=== PATIENT | male | born 1975 | race Two or more races ===

== ENCOUNTER 2025-01-21 21:37 | Emergency (ER) | payer BC, OTHER ==
[~2025-01-21] VITALS: Ht 172.7 cm; Wt 114.0 kg
[2025-01-21] MEDS: ONDANSETRON ODT 4 MG TAB PO ONE (22:25)
[2025-01-21] MEDS: HYDROmorphone HCL 2 MG/ML VL/or syr IM ONE (22:32)
--- NOTE | 2025-01-21 22:45 | ED.PDOC ---
General HPI Comments 49-year-old, obese male presents with spouse for chief complaint of testicular pain. Patient endorses on sudden, unprovoked, atraumatic onset of 10/10 pain, which started, initially, in his penis before radiating to his testicles and an lower abdomen, while urinating, 2 hours prior to ED arrival. No recent strenuous or sexual activities or further per no events reported. He denies having any burning with urination, hematuria, nausea, vomiting, or further acute symptoms. Chief Complaint: Testicle Pain Time Seen by MD: 22:15 Reviewed notes: Nurses Notes, Medications, Allergies Allergies: Coded Allergies: NO KNOWN ALLERGIES (Unverified , 01/21/25) Information Source: Patient Mode of Arrival: Ambulatory Severity: Moderate Inability to void: None Timing: Hours Duration: Since onset Prehospital treatment: None Onset: Spontaneous Symptoms: Other (See HPI) History of: None Location: Abdomen Location male: R Scrotum, L Scrotum Penile discharge: None Modifying factors: None associated signs and symptoms: Other (See HPI) Past Medical History PAST MEDICAL HISTORY: Denies Surgical History: Denies all surgeries Social History Smoker: Non-Smoker Alcohol: Denies ETOH Use Drugs: Denies Drug Use Lives In: Home All Other Systems: Reviewed and Negative (Comprehensive review of systems are negative unless otherwise stated in HPI) Physical Exam General Appearance: Obese, Severe Distress HEENT: Normal ENT Inspection, Pharynx Normal, TMs Normal Neck: Full Range of Motion, Non-Tender, Normal, Normal Inspection Respiratory: Chest Non-Tender, Lungs Clear, No Accessory Muscle Use, No Respiratory Distress, Normal Breath Sounds Cardiovascular: No Edema, No JVD, No Murmur, No Gallop, Normal Peripheral Pulses, Regular Rate/Rhythm Breast Exam: Deferred Gastrointestinal: Distended (Lower abdomen), No Organomegaly, No Pulsatile Mass, Normal Bowel Sounds, Soft, Tenderness (Lower abdomen) Genitalia: Testicle (Tenderness to palpation without any obvious swelling or hernia) Pelvic: Deferred Rectal: Deferred Extremities: No calf tenderness, Normal capillary refill, Normal inspection, Normal range of motion, Non-tender, No pedal edema Musculoskeletal : Apperance: Normal Neurologic: Alert, fashion illustrator II-XII nml as Tested, No Motor Deficits, Normal Affect, Normal Mood, No Sensory Deficits Cerebellar Function: Normal Reflexes: Normal Skin: Dry, Normal Color, Warm Lymphatic: No Adenopathy Was a procedure done? Was a procedure done?: No Differential Diagnosis Kidney stone (Female): N/A Kidney stone (Male): N/A Penile/Scrotal: Epidiymitis, UTI, Phimosis, Hydrocele, Testicular Torsion, Urolithiasis Urinary Problem (Male): N/A Urinary Problem (Female): N/A X-Ray, Labs, Meds, VS Vital Signs Date Time Temp Pulse Resp B/P (MAP) Pulse Ox O2 Delivery O2 Flow Rate FiO2 01/21/25 23:59 94 18 160/106 01/21/25 23:25 94 18 95 Room Air* 0 21 01/21/25 23:23 98.7 94 18 160/106 (124) 95 98.7 01/21/25 22:32 93 20 152/98 01/21/25 21:53 98.5 111 20 156/84 95 98.5 Lab Test 01/21/25 22:45 Range/Units White Blood Count 10.6 4.4-10.8 10^3/uL Red Blood Count 4.96 4.5-5.90 10^6/uL Hemoglobin 14.8 13.5-17.5 g/dL Hematocrit 42.9 41.0-53.0 % Mean Corpuscular Volume 86.6 80.0-100.0 fL Mean Corpuscular Hemoglobin 29.9 28.0-32.0 pg Mean Corpuscular Hemoglobin Concent 34.5 32.0-36.0 g/dL Red Cell Distribution Width 13.6 11.8-14.3 % Platelet Count 110 L 140-450 10^3/uL Mean Platelet Volume 10.6 6.9-10.8 fL Neutrophils (%) (Auto) 62.8 37.0-80.0 % Lymphocytes (%) (Auto) 30.8 10.0-50.0 % Monocytes (%) (Auto) 4.8 0.0-12.0 % Eosinophils (%) (Auto) 0.4 0.0-7.0 % Basophils (%) (Auto) 1.2 0.0-2.0 % Neutrophils # (Auto) 6.7 1.6-8.6 10 ^3/uL Lymphocytes # (Auto) 3.3 0.4-5.4 10 ^3/uL Monocytes # (Auto) 0.5 0-1.3 10 ^3/uL Eosinophils # (Auto) 0 0-0.8 10 ^3/uL Basophils # (Auto) 0.1 0-0.2 10 ^3/uL Nucleated Red Blood Cells 0.1 % Sodium Level 142 136-145 mmol/L Potassium Level 3.2 L 3.5-5.1 mmol/L Chloride Level 102 98-107 mmol/L Carbon Dioxide Level 25 20-31 mmol/L Anion Gap 15 5-15 Blood Urea Nitrogen 14 9-23 mg/dL Creatinine 1.23 0.700-1.30 mg/dL Glomerular Filtration Rate Calc 72 >90 mL/min BUN/Creatinine Ratio 11.4 10.0-20.0 Serum Glucose 169 H 74-106 mg/dL Calcium Level 9.9 8.7-10.4 mg/dL Lipase 33 12-53 U/L Current Medications Medications (Trade) Dose Ordered Sig/Juan Route Start Time Stop Time Status Last Admin Hydromorphone HCl (Dilaudid Injection) 1 mg ONCE ONCE IM 01/21/25 22:30 01/21/25 22:31 DC 01/21/25 22:32 Ondansetron HCl (Zofran Po) 4 mg ONCE ONCE PO 01/21/25 22:30 01/21/25 22:31 DC 01/21/25 22:25 [place] [id number] Ph: [phone] DIAGNOSTIC IMAGING Diagnostic Imaging Report : [id number] Signed PATIENT: ROSHAN SIMPSON ACCT: [id number] UNIT: [id number] : 1975 LOC: ER ROOM / BED: / AGE / SEX: 49 / M ADM STATUS: REG ER SERVICE 33 ORDERING PHYSICIAN: BREE MORELAND PROCEDURE(s): ABPL - CT AB PEL WO CON-NO ORAL OR IV REASON: abd pain ORDER NUMBER(s): [id number], ACCESSION NUMBER(s): [id number] Exam: CT CT AB PEL WO CON-NO ORAL OR IV History: abd pain Comparison Study: None TECHNIQUE: Multidetector CT of the abdomen and pelvis was performed from lung bases to pubic symphysis. Imaging was performed without IV contrast. Axial, coronal, and sagittal multiplanar reformats were obtained from the axial data set by the technologist. RADIATION DOSE: CTDI vol 18.9 mGy. DLP 1138.2 mGy.cm Findings: Limited evaluation of the solid organs in the absence of IV contrast. Lungs: The lung bases are clear. Liver: Unremarkable. Spleen: Unremarkable. Pancreas: Unremarkable. Gallbladder: Unremarkable. Adrenals: Unremarkable Kidneys: 1 mm calculus situated in the region of the distal left ureter near the ureterovesicular junction with mild upstream hydroureteronephrosis. Pelvic Viscera: Unremarkable. Vasculature: Unremarkable. Retroperitoneum: Unremarkable. Bowel: No bowel obstruction. No CT evidence of appendicitis. Musculoskeletal: Grade 1 anterolisthesis of L4 on L5 on the basis of bilateral pars defects.. Soft tissues: Tiny fat containing umbilical hernia. Impression: 1. 1 mm calculus situated in the region of the distal left ureter near the ureterovesicular junction with mild upstream hydroureteronephrosis. 2. Incidental findings as detailed. ATED BY: KESHA GUERRIER MD DICTATED DATE/TIME: 01/21/252339 SIGNED BY: KESHA GUERRIER MD SIGNED DATE/TIME: 01/21/252339 CC: [place] [id number] Ph: [phone] DIAGNOSTIC IMAGING Diagnostic Imaging Report : [id number] Signed PATIENT: ROSHAN SIMPSON ACCT: [id number] UNIT: [id number] : 1975 LOC: ER ROOM / BED: / AGE / SEX: 49 / M ADM STATUS: REG ER SERVICE 31 ORDERING PHYSICIAN: BREE MORELAND PROCEDURE(s): TESUS - TESTICULAR ULTRASOUND REASON: pain ORDER NUMBER(s): [id number], ACCESSION NUMBER(s): [id number] ULTRASOUND OF SCROTUM AND CONTENTS. INDICATION: pain COMPARISON: None TECHNIQUE: Multiple real-time grayscale sonographic and color and duplex Doppler images of the scrotum and its contents were obtained. FINDINGS: The right testicle measures 4.9 x 3.3 x 2.7 cm. The left testicle measures 4.4 x 3.3 x 2.7 cm. Both testicles demonstrate homogeneous echotexture without evidence of focal lesions. Left varicocele. The right epididymis measures 1.6 cm. The left epididymis measures 1.5 cm. Subsequent color and duplex Doppler interrogation of the testes demonstrated sy mmetric normal vascular flow to both testicles. No focal areas of hyperemia were seen. IMPRESSION: 1. No evidence of torsion, epididymitis, and/or orchitis. 2. Left varicocele. ATED BY: VALDEZ SCHAFER MD DICTATED DATE/TIME: 01/21/252333 SIGNED BY: VALDEZ SCHAFER MD SIGNED DATE/TIME: 01/21/252333 CC: X-Ray, Labs, Meds, VS Comment Imaging was reviewed by this provider, there is no obvious pathological . 1 mm kidney stone noted in the lower ureter Pending radiology review Labs were reviewed by this provider, no abnormalities Vital signs reviewed by this provider, clinically stable Time of 1ST Reevaluation: 22:55 Reevaluation 1ST: Unchanged Patient Education/Counseling: Diagnosis, Treatment, Need For Follow Up (Follow up with PCP in the next 2-3 days. Return to the emergency department if symptoms worsen.) Family Education/Counseling: Diagnosis, Treatment SEPSIS Sepsis Screen Date sepsis recognized/suspect: Jan 21, 2025 Time Sepsis recognized/suspect: 2154 Recent Procedure: No On Antibiotic Therapy: No Respiratory Rate >20: No Heart Rate >90: Yes Temp<36 C (96.8 F) or >38.3 C: No SBP <90 or MAP <65 mmHG: No New Acute Mental Status Change: No Is the patient on CPAP, BIPAP,: No Physician Orders Testicular Ultrasound (01/21/25 22:32) Urinalysis (01/21/25 22:32) Ct Ab Pel Wo Con-No Oral Or Iv (01/21/25 22:34) Drug Screen (01/21/25 22:34) Vital Signs Date Time Temp Pulse Resp B/P (MAP) Pulse Ox O2 Delivery O2 Flow Rate FiO2 01/21/25 23:59 94 18 160/106 01/21/25 23:25 94 18 95 Room Air* 0 21 12/1/25 23:23 98.7 94 18 160/106 (124) 95 98.7 01/21/25 22:32 93 20 152/98 01/21/25 21:53 98.5 111 20 156/84 95 98.5 Laboratory Tests Test 01/21/25 22:45 White Blood Count 10.6 10^3/uL (4.4-10.8) Medications Medications Dose Ordered Sig/Juan Route Start Time Stop Time Status Last Admin Dose Admin Hydromorphone HCl 1 mg ONCE ONCE IM 01/21/25 22:30 01/21/25 22:31 DC 01/21/25 22:32 Ondansetron HCl 4 mg ONCE ONCE PO 01/21/25 22:30 01/21/25 22:31 DC 01/21/25 22:25 Departure 1 Departure Time of Disposition: 00:22 Impression: Primary Impression: Kidney stone Disposition: 01 HOME / SELF CARE / HOMELESS Condition: Stable e-Prescriptions Hydrocodone-Acetaminophen (Hydrocodone Bitartrate/AC 5-325 mg) 1 Tab Tab 1 TAB PO TID PRN, #24 TAB Prov: BREE MORELAND 01/22/25 Tamsulosin Hcl (Flomax) 0.4 Mg Cap 1 CAP PO DAILY, #10 CAP 3 Refills Prov: BREE MORELAND 01/22/25 Discharged With: Self Critical Care Note Critical Care Time?: No Stability Stability form required: No Heart Score Heart Score: Heart Score Response (Comments) Value History N/A 0 EKG N/A 0 Age N/A 0 Risk Factors N/A 0 Troponin N/A 0 Total 0 I personally scribed for BREE MORELANDP ([email or web address]) on 01/21/25 at 22:45. Electronically submitted by Volodymyr Castillo ([email or web address]). I personally scribed for BREE MORELAND CANCER REGISTRY MANAGER ([email or web address]) on 01/22/25 at 00:04. Electronically submitted by Volodymyr Castillo ([email or web address]). BREE MORELAND Jan 21, 2025 22:45
[2025-01-21 23:07] LABS: Hematocrit 42.9 % (41.0-53.0); Hemoglobin 14.8 g/dL (13.5-17.5); Mean Corpuscular Hemoglobin 29.9 pg (28.0-32.0); Mean Corpuscular Volume 86.6 fL (80.0-100.0); Nucleated Red Blood Cells % 0.1 %
[2025-01-21 23:13] LABS: Chloride 102 mmol/L (98-107); Sodium 142 mmol/L (136-145)
[2025-01-21 23:14] LABS: Anion Gap 15 (5-15); Carbon Dioxide 25 mmol/L (20-31)
[2025-01-21 23:15] LABS: Calcium 9.9 mg/dL (8.7-10.4); Potassium 3.2 mmol/L (3.5-5.1)
[2025-01-21 23:19] LABS: BUN/Creatinine Ratio 11.4 (10.0-20.0); Blood Urea Nitrogen 14 mg/dL (9-23)
[2025-01-21 23:20] LABS: Lipase 33 U/L (12-53)
[2025-01-21 23:23] VITALS: TEMP 98.7
[2025-01-21 23:25] VITALS: PULSE 94; RESP 18; O2SAT 95
[2025-01-21 23:31] LABS: Glucose 169 mg/dL (74-106)
--- NOTE | 2025-01-21 23:36 | DVH ---
ULTRASOUND OF SCROTUM AND CONTENTS. INDICATION: pain COMPARISON: None TECHNIQUE: Multiple real-time grayscale sonographic and color and duplex Doppler images of the scrotum and its contents were obtained. FINDINGS: The right testicle measures 4.9 x 3.3 x 2.7 cm. The left testicle measures 4.4 x 3.3 x 2.7 cm. Both testicles demonstrate homogeneous echotexture without evidence of focal lesions. Left varicocele. The right epididymis measures 1.6 cm. The left epididymis measures 1.5 cm. Subsequent color and duplex Doppler interrogation of the testes demonstrated symmetric normal vascular flow to both testicles. No focal areas of hyperemia were seen. IMPRESSION: 1. No evidence of torsion, epididymitis, and/or orchitis. 2. Left varicocele.
--- NOTE | 2025-01-21 23:43 | DVH ---
Exam: CT CT AB PEL WO CON-NO ORAL OR IV History: abd pain Comparison Study: None TECHNIQUE: Multidetector CT of the abdomen and pelvis was performed from lung bases to pubic symphysis. Imaging was performed without IV contrast. Axial, coronal, and sagittal multiplanar reformats were obtained from the axial data set by the technologist. RADIATION DOSE: CTDI vol 18.9 mGy. DLP 1138.2 mGy.cm Findings: Limited evaluation of the solid organs in the absence of IV contrast. Lungs: The lung bases are clear. Liver: Unremarkable. Spleen: Unremarkable. Pancreas: Unremarkable. Gallbladder: Unremarkable. Adrenals: Unremarkable Kidneys: 1 mm calculus situated in the region of the distal left ureter near the ureterovesicular junction with mild upstream hydroureteronephrosis. Pelvic Viscera: Unremarkable. Vasculature: Unremarkable. Retroperitoneum: Unremarkable. Bowel: No bowel obstruction. No CT evidence of appendicitis. Musculoskeletal: Grade 1 anterolisthesis of L4 on L5 on the basis of bilateral pars defects.. Soft tissues: Tiny fat containing umbilical hernia. Impression: 1. 1 mm calculus situated in the region of the distal left ureter near the ureterovesicular junction with mild upstream hydroureteronephrosis. 2. Incidental findings as detailed.
[2025-01-21 23:59] VITALS: BP 160/106; PULSE 94; RESP 18
[2025-01-22] MEDS ORDERED: TAMS-35 PO (00:24)
[2025-01-22] MEDS ORDERED: HYDR-4902 PO (00:24)
== END 2025-01-22 00:48 | disposition home or self-care (01) ==
LOC: ER 21:37 → EDSEX 21:37 → ER 01-22 00:48
DX: N20.0 Calculus of kidney (principal); Z79.899 Other long term (current) drug therapy
CPT/HCPCS: 36415; 74176; 76870; 80048; 83690; 85025; 96372; 99285; J1171; Q0162